=== PATIENT | female | born 1990 | race Caucasian/White ===

== ENCOUNTER 2024-09-04 08:00 | Emergency (ER) | payer OTHER ==
[~2024-09-04] VITALS: Ht 170.2 cm; Wt 73.5 kg
[~2024-09-04 08:00] MED LIST: BACTRIM DS TAB1 EACH PO; CEPHALEXIN500 M1 PO; CRUTCH1 EACH; CYCLOBENZAPRINE5 MG PO; FLUOXETINE HCL40 MG PO; FLUOXETINE HCL60 MG PO; HYDROXYZINE HCL50 MG PO; IBUPROFEN800 MG PO; OMEPRAZOLE20 MG PO; PANTOPRAZOLE SO40 MG PO; PRAZOSIN HCL2 MG PO; PROPRANOLOL HCL60 M1 PO; PROZAC40 MG PO; SUMATRIPTAN SUC50 MG PO; TOPIRAMATE25 MG PO; TRAZODONE HCL50 MG PO
--- OUTSIDE RECORDS SUMMARY | 2024-09-04 08:01 | XMS ---
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 Mine VISIT COUNT (12 MO.) [address] [place] [address] TOTAL 4 NOTE: Visits indicate total known visits. ED/UCC VISIT TRACKING (12 MO.) 09/04/2024 08:00 [facility] TYPE: Emergency COMPLAINT: - SKIN PROBLEM 09/02/2024 11:00 [facility] TYPE: Emergency COMPLAINT: - SKIN PROBLEM 02/02/2024 11:28 [facility] TYPE: Emergency COMPLAINT: - KUNAL DIAGNOSES: - Anxiety disorder, unspecified - Depression, unspecified - Essential (primary) hypertension - Nicotine dependence, unspecified, uncomplicated - Other equipment operator intermodal yard (current) drug therapy - Sprain of unspecified ligament of right ankle, initial encounter - Suicidal ideations - Unspecified convulsions 01/24/2024 13:[address] [facility] [place] TYPE: Emergency COMPLAINT: - SEIZURE, HEAD PAIN DIAGNOSES: - Contusion of scalp, initial encounter - Essential (primary) hypertension - Nicotine dependence, unspecified, uncomplicated - Other fall on same level, initial encounter - Other equipment operator intermodal yard (current) drug therapy - Unspecified convulsions INPATIENT VISIT TRACKING (12 MO.) No inpatient visits to display in this time frame [email or web address]
[2024-09-04] MEDS ORDERED: TRIMETHOPRIM/SULFAMETHOXAZOLE 1 EA TAB PO ONE (08:15)
[2024-09-04 09:43] LABS: EOSINOPHILS 1.8 % (0-6); HEMATOCRIT 34.6 % (35.0-50.0); LYMPHOCYTES 17.3 % (24-44); MCH 24.9 (27-36); MCHC 31.7 g/dl (30-36); MCV 78.5 fl (81-99); MONOCYTES 6.7 % (0-12); NEUTROPHILS 73.2 % (39-80); PLATELET COUNT 226 K/uL (140-440); RDW 23.9 (10.5-15.0)
[2024-09-04 10:09] LABS: ACETAMINOPHEN 0 ug/mL (10-30); ALBUMIN 3.6 g/dL (3.4-5.0); ALBUMIN/GLOBULIN RATIO 0.97 (1.1-2.4); ALCOHOL, MEDICAL 10 ng/dL (<3); ALKALINE PHOSPHATASE 91 U/L (46-116); ALT (SGPT) 19 U/L (14-59); ANION GAP 19.5 (7-21); AST (SGOT) 16 U/L (15-37); BILIRUBIN, TOTAL 0.5 ng/dL (0.2-1.0); BUN/CREATININE RATIO 18.29 (6.0-28.6); CALCIUM 8.5 mg/dL (8.5-10.1); CARBON DIOXIDE 21 mmol/L (21-32); CHLORIDE 103 mmol/L (98-107); CREATININE, SERUM 0.82 mg/dL (0.55-1.02); GLOMERULAR FILTRATION RATE,EST 96 mL/min (>60); POTASSIUM 3.5 mmol/L (3.5-5.1); PROTEIN, TOTAL 7.3 g/dL (6.4-8.2); SALICYLATE 3.8 mg/dL (2.8-20.0); TSH, 3RD GENERATION 1.584 uIU/mL (0.358-3.740); UREA NITROGEN 15 mg/dL (7-18)
[2024-09-04 12:30] LABS: BILIRUBIN, URINE NEGATIVE (negative); BLOOD/HGB, URINE SMALL (Negative); KETONE, URINE SMALL (Negative); LEUK ESTERASE, URINE NEGATIVE (negative); NITRITE, URINE NEGATIVE (negative)
[2024-09-04 12:35] LABS: BACTERIA, URINE RARE /hpf (negative); CASTS, URINE NONE SEEN \\lpf; COLLECTION TYPE, URINE CLEAN CATCH; CRYSTALS, URINE NONE SEEN (0-1+); EPITHELIAL CELLS, URINE SQUAMOUS 3+ /lpf (0-1+); RED BLOOD CELLS, URINE 0-1 /hpf (0-5); REFLEX CULTURE, URINE No (No); WHITE BLOOD CELLS, URINE 0-1 /HPF (0-5)
[2024-09-04 12:45] LABS: AMPHETAMINES, URINE POSITIVE (NEGATIVE); BARBITURATES, URINE NEGATIVE (NEGATIVE); BENZODIAZEPINE, URINE NEGATIVE (NEGATIVE); BUPRENORPHINE, URINE NEGATIVE (NEGATIVE); CANNABINOID, URINE POSITIVE (NEGATIVE); COCAINE, URINE NEGATIVE (NEGATIVE); ECSTASY, URINE POSITIVE (NEGATIVE); FENTANYL, URINE NEGATIVE (NEGATIVE); METHADONE, URINE NEGATIVE (NEGATIVE); OPIATES, URINE NEGATIVE (NEGATIVE); OXYCODONE, URINE NEGATIVE (NEGATIVE); PHENCYCLIDINE, URINE NEGATIVE (NEGATIVE)
[2024-09-04] MEDS ORDERED: SUMAtriptan succinate 50 MG TAB PO ONE (20:00)
[2024-09-04] MEDS ORDERED: hydrOXYzine pamoate 50 MG CAP PO ONE (20:00)
[2024-09-04] MEDS ORDERED: ACETAMINOPHEN 500 MG TAB PO ONE (20:00)
[2024-09-04 20:24] LABS: INFLUENZA B NAA NEGATIVE (NEGATIVE); RESPIRATORY SYNCYTIAL VIR NAA NEGATIVE (NEGATIVE)
[2024-09-04] MEDS ORDERED: TRIMETHOPRIM/SULFAMETHOXAZOLE 1 EA TAB PO SCH (21:00)
[2024-09-04] MEDS ORDERED: TOPIRAMATE 25 MG TAB PO SCH (21:00)
[2024-09-04] MEDS ORDERED: QUETIAPINE FUMARATE 25 MG TAB PO ONE (22:30)
[2024-09-05] MEDS ORDERED: IBUPROFEN 600 MG TAB PO PRN (10:00)
[2024-09-05] MEDS ORDERED: NICOTINE POLACRILEX 4 MG LOZENGE BUCCAL PRN (10:00)
[2024-09-05] MEDS ORDERED: FLUOXETINE HCL 20 MG CAP PO SCH (10:21)
[2024-09-05] MEDS ORDERED: BACTRIM DS TAB1 EACH PO (18:36)
[2024-09-05] MEDS ORDERED: PROZAC40 MG PO (18:36)
[2024-09-05 19:00] VITALS: BP 120/77
--- NOTE | 2024-09-06 15:50 | EKG ---
[facility] [address] [facility] [place] [address] Signed Sinus rhythm with premature atrial complexes with aberrant conduction Otherwise normal ECG No previous ECGs available Confirmed by Mike Carty MD ([id number]) on 09/06/2024 3:50:11 PM Electronically Signed By: MIKE CARTY MD 09/06/24 1550 PATIENT NAME: JIA LAWSON Electrocardiogram DATE OF : 88 PHYSICIAN: MIKE CARTY MD REPORT #: [id number] REPORT IS CONFIDENTIAL AND NOT TO BE RELEASED WITHOUT AUTHORIZATION
== END 2024-09-05 19:01 | disposition short-term general hospital (02) ==
LOC: ED 08:00
PROVIDERS: Emergency Medicine
DX: L03.211 Cellulitis of face (principal); R45.851 Suicidal ideations; I10 Essential (primary) hypertension; F17.200 Nicotine dependence, unspecified, uncomplicated; Z59.00 Homelessness unspecified; Z79.899 Other long term (current) drug therapy
CPT/HCPCS: 36415; 80053; 80307; 81001; 84443; 84703; 85025; 85060; 87502; 93005; 93010; 99285; A9270; G0480; U0002